=== PATIENT | male | born 1995 | race Caucasian/White ===

== ENCOUNTER 2022-10-11 10:09 | Emergency (ER) | payer OTHER, SELFPAY ==
--- NOTE | ~2022-10-11 | US_ITS ---
EXAMINATION: US SCROTUM, with duplex Doppler vascular flow evaluation. CLINICAL INFORMATION: Pain and swelling. COMPARISON: None TECHNIQUE: A sonogram of the scrotum was performed assessing raymond-scale appearance and color Doppler flow. Spectral Doppler analysis of the arterial and venous flow were performed in the testes bilaterally. FINDINGS: RIGHT: Right testicle measures 5.2 x 2.4 x 3.1 cm, volume 20.3 mL. No focal testicular parenchymal lesions are visualized. Spectral Doppler analysis of the arterial and venous flow is normal in the right testis. Right epididymal head is normal in size. No right hydrocele or varicocele is seen. Right epididymal Doppler flow is normal. LEFT: Left testicle measures 4.4 x 3.0 x 3.9 cm, volume 26.3 mL. No focal testicular parenchymal lesions are visualized. Spectral Doppler analysis of the arterial and venous flow is normal in the left testis. There is a large left epididymal head cyst present without internal vascular flow or soft tissue component measuring 6.2 x 4.0 x 5.3 cm in size. There is a minimal left hydrocele. No varicocele is seen. Left epididymal Doppler flow is normal. US/US scrotum IMPRESSION: Large left epididymal head cyst measuring 6.2 cm in largest dimension. No significant testicular abnormality appreciated. No Doppler flow abnormality is seen.
--- NOTE | ~2022-10-11 | US_ITS ---
EXAMINATION: US SCROTUM, with duplex Doppler vascular flow evaluation. CLINICAL INFORMATION: Pain and swelling. COMPARISON: None TECHNIQUE: A sonogram of the scrotum was performed assessing raymond-scale appearance and color Doppler flow. Spectral Doppler analysis of the arterial and venous flow were performed in the testes bilaterally. FINDINGS: RIGHT: Right testicle measures 5.2 x 2.4 x 3.1 cm, volume 20.3 mL. No focal testicular parenchymal lesions are visualized. Spectral Doppler analysis of the arterial and venous flow is normal in the right testis. Right epididymal head is normal in size. No right hydrocele or varicocele is seen. Right epididymal Doppler flow is normal. LEFT: Left testicle measures 4.4 x 3.0 x 3.9 cm, volume 26.3 mL. No focal testicular parenchymal lesions are visualized. Spectral Doppler analysis of the arterial and venous flow is normal in the left testis. There is a large left epididymal head cyst present without internal vascular flow or soft tissue component measuring 6.2 x 4.0 x 5.3 cm in size. There is a minimal left hydrocele. No varicocele is seen. Left epididymal Doppler flow is normal. US/US scrotum doppler IMPRESSION: Large left epididymal head cyst measuring 6.2 cm in largest dimension. No significant testicular abnormality appreciated. No Doppler flow abnormality is seen.
[2022-10-11 10:14] VITALS: BP 175/95; PULSE 76; RESP 18; TEMP 36.4; O2SAT 98; BMI 22.7
[2022-10-11 10:41] LABS: Appearance Urine Clear; Color Urine Yellow; Glucose Urine UA Negative (Negative); Leukocyte Esterase Urine Negative (Negative); Nitrite Urine Negative (Negative); PH 7.5 (5.0-9.0); Specific Gravity - Urine 1.015 (1.005-1.025); Urine Blood Negative (Negative); Urine Ketones Negative (Negative); Urine Protein Negative (Neg-Trace)
--- NOTE | 2022-10-11 13:02 | ED.MALEGU ---
HPI - Male Genitourinary General Chief complaint: Urogenital-Male Stated complaint: L Testicle Discomfort Time Seen by Provider: 10/11/22 11:18 Source: patient Mode of arrival: ambulatory Limitations: no limitations History of Present Illness HPI Narrative: 27-year-old male with no significant past medical history presenting to the ED with complaints of left testicular discomfort that has worsened over the past 3 days. Reports that he was seen for this testicular pain/ swelling approximately 2 years ago and reports that he was seen by his prior primary care provider was told he had a cyst. He reports he lost his insurance and never followed up after that. Reports that the cyst has grown in the past 2 years and now he is worried. Reports that he seen his new primary care provider over the past few weeks and they told him that they would order an ultrasound although he has not heard back therefore he is concerned and came here for further evaluation treatment. He denies any fevers, abdominal pain, back pain, flank pain, dysuria, hematuria, abnormal discharge or thoughts of STDs or any other symptoms complaints or concerns at this time. MD Complaint: testicle pain and testicle swelling Onset (ago): year(s) (2 has grown in the past few weeks) Duration: constant Location: left testicle Severity: mild Quality: aching Relieving factors: none Exacerbating factors: none Associated symptoms: Reports denies other symptoms Related Data Allergies Allergy/AdvReac Type Severity Reaction Status Date / Time Penicillins Allergy Unknown Verified 10/11/22 10:13 Review of Systems Review of Systems: Constitutional : No Weight loss, No Fever, No Chills, No Night Sweats, No Fatigue, NoMalaise ENT/Mouth: No ear pain, No sore throat, No Difficulty swallowing Cardiovascular : No Chest Pain, No SOB, No Dyspnea on Exertion, No Orthopnea, NoEdema, No Palpitations Respiratory : No Cough, No Sputum, No Wheezing, No Dyspnea Gastrointestinal : No Nausea, No Vomiting, No Diarrhea, + abdominal Pain, No Hematochezia, No Melena Genitourinary : + left testicular pain/swelling, No irregular bleeding, No Dysuria, No Urinary Frequency, No Hematuria,No Urinary Incontinence, No Urgency, No Flank Pain Musculoskeletal : No joint pain, No Myalgias, No Joint Swelling Skin : No Skin Lesions, No rash Neuro : No Weakness, No Numbness, No Paresthesias, No Loss of Consciousness, NoDizziness, No Headache Psych : No Social Issues, Heme/Lymph: No Bruising, No Bleeding,No Lymphadenopathy Endocrine : No Polyuria, No Polydipsia, No Temperature Intolerance PATIENT DENIES ANY THOUGHTS OF STDS Yes all other systems are reviewed and are negative [facility] Past Medical History Attestation statement: The following information was validated with the patient. Source: old records reviewed and nursing notes reviewed Social History Social History Advance Directives: No Advance Directives Information Provided: No Physical Exam Vital Signs: Vital Signs: Last Vital Signs Temp 97.6 F 10/11/22 10:14 Pulse 76 10/11/22 10:14 Resp 18 10/11/22 10:14 BP 175/95 H 10/11/22 10:14 Pulse Ox 98 10/11/22 10:14 O2 Del Method 10/11/22 10:14 BMI result Body Mass Index 22.7 vital signs have been reviewed as normal and appeared to be correct. Blood pressure normal. Heart rate normal. Respiration rate normal. Temperature normal. Oxygen saturation normal. Appearance: Alert. Oriented X3. No acute distress. Head: Normal external exam. Normocephalic. Atraumatic. Eyes: PERRLA. EOMI. Conjunctiva and sclera normal. Eyelids normal. ENT: Pharynx normal. Uvula midline. Moist mucous membranes. Neck: Normal inspection. Neck supple. FROM. No adenopathy. No meningeal signs. CVS: Normal heart rate and rhythm. Heart sound normal. No murmurs noted. Pulses normal throughout. Respiratory: No respiratory distress. Painless inspiration. Breath sounds normal. No wheezes/rales/rhonchi noted. Chest nontender. No accessory muscle usage noted or decreased air movement noted. Abdomen: Soft and nontender. Bowel sounds normal in all 4 quadrants. No distention noted. No organomegaly noted. No visible injury noted. : Chaperoned by RYAN Godoy. Normal external exam. Left testicle enlarged when compared to the right testicle and mildly tender. No additional masses/lumps/ecchymosis/edema/erythema/lacerations/lesions/vesicles/induration noted. No hernia noted. No inguinal lymphadenopathy noted. Normal penis free of discharge. The scrotum is normal. Testicles are both descended bilaterally. No varicocele. No blue dot sign. Back: No CVA tenderness. Full range of motion noted. Skin: Skin warm and dry. Normal skin color. Normal skin turgor. No rashes/lesions/lacerations noted. Extremities: Extremities exhibit normal range of motion. Extremities nontender. Neuro: Oriented X 3. No motor deficit. No sensory deficit. Reflexes normal. Course Course Course Narrative: UA within normal limits no evidence of UTI. Gonorrhea chlamydia pending at this time although patient does not have any abnormal discharge dysuria or thoughts of STDs therefore will not treat. Ultrasound revealed epididymal cysts otherwise no other acute processes. Will DC home with instructions to follow-up with urology and to return if any new or worsening symptoms. Patient understands agrees with this plan. Medical Decision Making Lab Data MDM Lab Attestation statement: I reviewed the patient's lab results. Labs: Lab Results 10/11/22 Range/Units 10:21 Urine Color Yellow Urine Appearance Clear Urine pH 7.5 (5.0-9.0) Ur Specific Harmony 1.015 (1.005-1.025) Urine Protein Negative (Neg-Trace) mg/dL Urine Glucose (UA) Negative (Negative) mg/dL Urine Ketones Negative (Negative) mg/dL Urine Blood Negative (Negative) Urine Nitrite Negative (Negative) Ur Leukocyte Esterase Negative (Negative) Independent Interpretation Interpretation: Ultrasound of testicles FINDINGS: RIGHT: Right testicle measures 5.2 x 2.4 x 3.1 cm, volume 20.3 mL. No focal testicular parenchymal lesions are visualized. Spectral Doppler analysis of the arterial and venous flow is normal in the right testis. Right epididymal head is normal in size. No right hydrocele or varicocele is seen. Right epididymal Doppler flow is normal. LEFT: Left testicle measures 4.4 x 3.0 x 3.9 cm, volume 26.3 mL. No focal testicular parenchymal lesions are visualized. Spectral Doppler analysis of the arterial and venous flow is normal in the left testis. There is a large left epididymal head cyst present without internal vascular flow or soft tissue component measuring 6.2 x 4.0 x 5.3 cm in size. There is a minimal left hydrocele. No varicocele is seen. Left epididymal Doppler flow is normal. US/US scrotum doppler IMPRESSION: Large left epididymal head cyst measuring 6.2 cm in largest dimension. ? No significant testicular abnormality appreciated. ? No Doppler flow abnormality is seen. Discharge Plan Discharge Clinical Impression: Cyst of epididymis Patient Disposition: Home, Self-Care Instructions: Cyst (ED), Scrotal Pain (ED) Referrals: Km Carr III, MD [Physician] - 1 day ( call to make a follow-up appointment) Interventions: ED Discharge Assessment Last Done: 10/11/22 13:08 Discharge Date/Time: 10/11/22 13:11
[2022-10-11 14:00] LABS: CT PCR NOT DETECTED (Not Detect.); NG PCR NOT DETECTED (Not Detect.)
== END 2022-10-11 13:11 | disposition home or self-care (01) ==
PROVIDERS: Emergency Provider Student in an Organized Health Care Education/Training Program
DX: N50.3 Cyst of epididymis (principal); N50.812 Left testicular pain
CPT/HCPCS: 76870; 81003; 87491; 87591; 93975; 99283; 99284

== ENCOUNTER → 2022-11-07 10:51 | Outpatient (BNVA) | payer OTHER, SELFPAY | PROVIDERS: Visit Provider Nurse Practitioner Family | DX: N43.40 Spermatocele of epididymis, unspecified (principal) ==

== ENCOUNTER 2022-11-20 18:33 | Emergency (ER) | payer OTHER, SELFPAY ==
--- NOTE | ~2022-11-20 | CT_ITS ---
EXAMINATION: CT ABDOMEN AND PELVIS WITH CONTRAST CLINICAL INFORMATION: Abdominal pain, nausea/vomiting/diarrhea COMPARISON: None TECHNIQUE: Multidetector volumetric images were obtained from the superior aspect of the liver through the pubic symphysis following administration 85 mL of Omnipaque 350 intravenous contrast. Sagittal and coronal reformatted images were obtained on the technologist's workstation. Oral contrast: No This CT examination was performed using dose optimization techniques as appropriate, variously including the following: *Automated exposure control *Adjustment of mA and/or kV according to patient size (this includes techniques or standardized protocols for targeted exams where dose is matched to indication/reason for exam; i.e. extremities or head) *Use of iterative reconstruction technique DLP: 358 mGy-cm FINDINGS: LUNG BASES: The visualized lung bases are unremarkable. LIVER, GALLBLADDER, AND BILIARY TREE: The liver is normal in size, shape, and attenuation. No focal hepatic lesion or biliary ductal dilatation is present. The gallbladder is unremarkable with no evidence of radiopaque gallstones, gallbladder wall thickening, or obvious pericholecystic inflammatory changes. PANCREAS: Unremarkable. SPLEEN: Borderline enlarged. ADRENAL GLANDS: Unremarkable. KIDNEYS AND URETERS: There are large cystic structures in the left kidney with overlying cortical thinning, suspicious for severe hydronephrosis and dilated calyces. Ureter does not appear dilated, and overall configuration suggests sequelae of chronic UPJ obstruction. No obstructing calculus identified bilaterally. Bilateral nephrograms are symmetric. No right hydronephrosis. BLADDER: Unremarkable. GASTROINTESTINAL TRACT: No evidence of bowel obstruction or significant wall thickening. The appendix is unremarkable. No free fluid or free air is seen. ABDOMINAL WALL: No significant hernia is appreciated. LYMPH NODES: Normal. VASCULAR: Unremarkable. PELVIC VISCERA: Unremarkable. OSSEOUS STRUCTURES: Unremarkable. CT/CT abdomen pelvis w IV con IMPRESSION: 1. No acute bowel abnormality. 2. Large cystic structures in the left kidney with overlying cortical thinning, suspicious for sequelae of chronic UPJ obstruction. No obstructing calculus identified. 3. Borderline enlarged spleen.
[2022-11-20 18:54] VITALS: BP 134/75; PULSE 90; RESP 20; TEMP 37.2; O2SAT 96; BMI 22.5
--- NOTE | 2022-11-20 18:54 | ED.URI ---
HPI - URI/Sore Throat General Chief Complaint: Nausea/Vomiting/Diarrhea Stated Complaint: Fatigue, vomiting, diarrhea Time Seen by Provider: 11/21/22 00:02 Related Data Previous Rx's Medication Instructions Recorded ibuprofen 400 mg tablet 400 mg PO Q6H PRN pain #20 tabs 11/21/22 ondansetron 4 mg disintegrating 4 mg PO TID PRN nausea and 11/21/22 tablet vomiting 5 days #10 tabs Allergies Allergy/AdvReac Type Severity Reaction Status Date / Time Penicillins Allergy Unknown Verified 11/07/22 20:04 [facility] Past Medical History Medical History Elevated blood-pressure reading, without diagnosis of hypertension Hx of migraines Hyperopia of left eye Myopia, right eye Unspecified asthma, uncomplicated Surgical History History of hernia repair Social History Social History Advance Directives: No Advance Directives Information Provided: No Physical Exam Vital Signs: Vital Signs: Last Vital Signs Temp 98.8 F 11/21/22 02:00 Pulse 76 11/21/22 02:00 Resp 15 11/21/22 02:00 BP 131/84 11/21/22 02:00 Pulse Ox 98 11/21/22 02:00 O2 Del Method 11/21/22 02:00 BMI result Body Mass Index 22.5 Course Course Course Narrative: This is a rapid medical exam. Deferred additional HPI, ROS, PE to primary provider. 27 yo male healthy here with vomiting/diarrhea since waking with no abdominal pain. Unable to maintain PO. Feels dizzy/weak when he walks around. Will obtain labs, testing for flu/covid/rsv and SL zofran. VSS Medications Administered Discontinued Medications Generic Name Dose Route Start Last Admin Trade Name Freq PRN Reason Stop Dose Admin Hydromorphone HCl 0.5 mg 11/21/22 00:06 11/21/22 01:05 Hydromorphone Hcl 0.5 Mg/0.5 Ml Syringe IVPUSH 11/21/22 00:07 0.5 mg ONCE ONE Administration Protocol Sodium Chloride 1,000 mls @ 999 mls/hr 11/21/22 00:15 11/21/22 02:45 Ns IV 11/21/22 01:15 Infused .Q1H1M DONNA Infusion Sodium Chloride 1,000 mls @ 999 mls/hr 11/21/22 00:15 11/21/22 02:45 Ns IV 11/21/22 01:15 Infused .Q1H1M DONNA Infusion Iohexol 85 ml 11/21/22 01:36 11/21/22 01:36 Iohexol 350 Mg/Ml 100 Ml Infus..Btl IV 11/21/22 01:37 85 ml ONCE ONE Administration Ondansetron HCl 4 mg 11/20/22 18:55 11/20/22 18:58 Ondansetron Odt 4 Mg Tab.Rapdis TRANSLINGU 11/20/22 18:56 4 mg ONCE ONE Administration Ondansetron HCl 4 mg 11/21/22 00:06 11/21/22 01:05 Ondansetron Hcl 4 Mg/2 Ml Vial IVPUSH 11/21/22 00:07 4 mg ONCE ONE Administration Medical Decision Making Lab Data 11/20/22 19:54 11/20/22 19:54 Labs: Lab Results 11/20/22 11/20/22 11/20/22 Range/Units 19:51 19:54 19:54 WBC 12.6 H (4.8-10.8) X10*3/uL RBC 5.12 (4.60-5.80) X10*6/uL Hgb 15.7 (14.0-18.0) g/dl Hct 45.4 (42.0-52.0) % MCV 88.7 (80.0-98.0) fL MCH 30.7 (27.0-33.0) pg MCHC 34.6 (31.0-36.0) g/dl RDW 11.4 (11.0-16.0) % Plt Count 202 (160-400) X10*3/uL MPV 10.7 (9.4-12.4) fL Immature Gran % (Auto) 0.3 (0.0-0.4) % Neut % (Auto) 88.1 H (45-73) % Lymph % (Auto) 5.2 L (20-40) % Lewis % (Auto) 5.5 (2-11) % Eos % (Auto) 0.7 (0-4) % Baso % (Auto) 0.2 (0-2) % Lymph # (Auto) 0.7 L (1.2-4.9) X10*3/uL Lewis # (Auto) 0.7 (0.1-1.2) X10*3/uL Eos # (Auto) 0.1 (0.0-0.4) X10*3/uL Baso # (Auto) 0.0 (0.0-0.2) X10*3/uL Abs Immat Gran (auto) 0.04 H (0.00-0.03) X10*3/uL Absolute Neuts (auto) 11.1 H (2.0-8.3) x10*3/uL Absolute Nucleated RBC 0.000 (0.0-0.012) X10*3/uL Nucleated RBC % (auto) 0.0 (0.0-0.2) /100WBC Sodium 141 (135-145) mmol/L Potassium 4.0 (3.3-5.1) mmol/L Chloride 106 (96-108) mmol/L Carbon Dioxide 24 (22-29) mmol/L Anion Gap 15 (12-20) BUN 19 H (9-16) mg/dL Creatinine 0.91 (0.5-1.4) mg/dL Estim Creat Clear Calc 112.6 Estimated GFR > 60 Random Glucose 93 (60-115) mg/dL Calcium 9.3 (8.4-10.2) mg/dL Total Bilirubin 1.3 H (0.0-1.0) mg/dL Direct Bilirubin 0.4 (0.0-0.5) mg/dL AST 19 (5-37) U/L ALT 26 (0-40) U/L Alkaline Phosphatase 47 (39-117) U/L Total Protein 7.0 (6.5-8.0) g/dL Albumin 4.3 (3.5-5.0) g/dL Lipase 12 (8-78) U/L Influenza Type A (PCR) NEGATIVE (Negative) Influenza Type B (PCR) NEGATIVE (Negative) RSV RNA Qual (PCR) NEGATIVE (Negative) SARS-CoV-2 RNA (RT-PCR) NEGATIVE (Negative) Discharge Plan Discharge Clinical Impression: Gastroenteritis Patient Disposition: Home, Self-Care Instructions: Gastroenteritis (ED) Additional Instructions: a large cystic lesion was noted in your kidney. A copy of the CT scan report was given to you. This is most likely secondary to a chronic kidney stone. Please follow-up with Urology. A telephone number was given to you. Prescriptions: New ibuprofen 400 mg tablet 400 mg PO Q6H PRN (Reason: pain) Qty: 20 0RF ondansetron 4 mg tablet,disintegrating 4 mg PO TID PRN (Reason: nausea and vomiting) 5 Days Qty: 10 0RF Referrals: Ye Chaudhari MD [Physician] - ( A copy of the CT scan report was given to you. Please take it and follow-up with Dr. Chaudhari) Physician,Nonstaff [Primary Care Provider] - Stand Alone Forms: Work/School Release Interventions: ED Discharge Assessment Last Done: 11/21/22 02:46 Discharge Date/Time: 11/21/22 02:46
[2022-11-20] MEDS: Ondansetron ODT 4 MG TAB.RAPDIS TRANSLINGU (18:58)
[2022-11-20 20:00] LABS: Basophils Percent Auto 0.2 % (0-2); Eosinophils Absolute Auto 0.1 X10*3/uL (0.0-0.4); Eosinophils Percent Auto 0.7 % (0-4); Hematocrit 45.4 % (42.0-52.0); Hemoglobin 15.7 g/dl (14.0-18.0); Imm Gran Abs Auto 0.04 X10*3/uL (0.00-0.03); Imm Gran Pct Auto 0.3 % (0.0-0.4); Lymphocytes Absolute Auto 0.7 X10*3/uL (1.2-4.9); Lymphocytes Percent Auto 5.2 % (20-40); MANUAL DIFF FLAG NO; Mean Corpuscular HGB Conc 34.6 g/dl (31.0-36.0); Mean Corpuscular Hemoglobin 30.7 pg (27.0-33.0); Mean Corpuscular Volume 88.7 fL (80.0-98.0); Mean Platelet Volume 10.7 fL (9.4-12.4); Monocytes Absolute Auto 0.7 X10*3/uL (0.1-1.2); Monocytes Percent Auto 5.5 % (2-11); Neutrophils Absolute Auto 11.1 x10*3/uL (2.0-8.3); Neutrophils Percent Auto 88.1 % (45-73); Platelet Count 202 X10*3/uL (160-400); Red Blood Count 5.12 X10*6/uL (4.60-5.80); Red Cell Distribution Width 11.4 % (11.0-16.0); White Blood Count 12.6 X10*3/uL (4.8-10.8)
[2022-11-20 20:14] LABS: Anion Gap 15 (12-20); Blood Urea Nitrogen 19 mg/dL (9-16); Calcium 9.3 mg/dL (8.4-10.2); Carbon Dioxide 24 mmol/L (22-29); Chloride 106 mmol/L (96-108); Creatinine Clr Calc Pharmacy 112.6; Estimated Glomerular Filt Rate > 60; Glucose Random 93 mg/dL (60-115); Sodium 141 mmol/L (135-145)
[2022-11-20 20:37] LABS: Influenza A PCR NEGATIVE (Negative); Influenza B PCR NEGATIVE (Negative); Resp Syncy Virus RNA Qual PCR NEGATIVE (Negative); SARS COV2 PCR INHOUSE NEGATIVE (Negative)
[2022-11-21] VITALS: BP 139/88; PULSE 83; RESP 14; TEMP 37.4; O2SAT 97
--- NOTE | 2022-11-21 00:07 | ED.NAVMDI ---
HPI - Nausea/Vomiting/Diarrhea General Chief complaint: Nausea/Vomiting/Diarrhea Stated complaint: Fatigue, vomiting, diarrhea Time Seen by Provider: 11/21/22 00:02 History of Present Illness HPI Narrative: patient is a 27-year-old male presents today with having nausea vomiting diarrhea abdominal cramping. No travel history no recent antibiotics. No coughing no congestion or upper respiratory symptoms. Patient is from home. Positive cramping in the abdomen mostly in the epigastric area. MD elicited complaint: nausea, vomiting and diarrhea Related Data Previous Rx's Medication Instructions Recorded ibuprofen 400 mg tablet 400 mg PO Q6H PRN pain #20 tabs 11/21/22 ondansetron 4 mg disintegrating 4 mg PO TID PRN nausea and 11/21/22 tablet vomiting 5 days #10 tabs Allergies Allergy/AdvReac Type Severity Reaction Status Date / Time Penicillins Allergy Unknown Verified 11/07/22 20:04 Review of Systems Review of Systems: Positive nausea vomiting diarrhea. Vomiting mostly food. Diarrhea is brown in color. Yes all other systems are reviewed and are negative PMFSH Past Medical History Attestation statement: The following information was validated with the patient. Medical History Elevated blood-pressure reading, without diagnosis of hypertension Hx of migraines Hyperopia of left eye Myopia, right eye Unspecified asthma, uncomplicated Surgical History History of hernia repair Social History Social History Advance Directives: No Advance Directives Information Provided: No Physical Exam Vital Signs: Vital Signs: Last Vital Signs Temp 99.3 F 11/21/22 00:00 Pulse 83 11/21/22 00:00 Resp 14 11/21/22 00:00 BP 139/88 11/21/22 00:00 Pulse Ox 97 11/21/22 00:00 O2 Del Method 11/21/22 00:00 BMI result Body Mass Index 22.5 Appearance: Alert. Oriented X3. No acute distress. Eyes: Pupils equal, round and reactive to light. ENT: Pharynx normal. Neck: Normal inspection. Neck supple. No lymph nodes noted. No crepitus CVS: Normal heart rate and rhythm. Pulses normal. Normal S1 and S2 Respiratory: No respiratory distress. Breath sounds normal. No Wheezing. No rales Abdomen: Soft and nontender. No rigidity. No distention. good BS x4 Skin: Skin warm and dry. Normal skin color. Normal skin turgor. Extremities: No lower extremity edema. Neurovascular intact to all extremities. No Lacerations. No Rash Neuro: Oriented X 3. No motor deficit. No sensory deficit. Moving all extermities. No slurred speech Medications Administered Discontinued Medications Generic Name Dose Route Start Last Admin Trade Name Freq PRN Reason Stop Dose Admin Hydromorphone HCl 0.5 mg 11/21/22 00:06 11/21/22 01:05 Hydromorphone Hcl 0.5 Mg/0.5 Ml Syringe IVPUSH 11/21/22 00:07 0.5 mg ONCE ONE Administration Protocol Sodium Chloride 1,000 mls @ 999 mls/hr 11/21/22 00:15 11/21/22 01:06 Ns IV 11/21/22 01:15 999 mls/hr .Q1H1M DONNA Administration Sodium Chloride 1,000 mls @ 999 mls/hr 11/21/22 00:15 11/21/22 01:06 Ns IV 11/21/22 01:15 999 mls/hr .Q1H1M DONNA Administration Iohexol 85 ml 11/21/22 01:36 11/21/22 01:36 Iohexol 350 Mg/Ml 100 Ml Infus..Btl IV 11/21/22 01:37 85 ml ONCE ONE Administration Ondansetron HCl 4 mg 11/20/22 18:55 11/20/22 18:58 Ondansetron Odt 4 Mg Tab.Rapdis TRANSLINGU 11/20/22 18:56 4 mg ONCE ONE Administration Ondansetron HCl 4 mg 11/21/22 00:06 11/21/22 01:05 Ondansetron Hcl 4 Mg/2 Ml Vial IVPUSH 11/21/22 00:07 4 mg ONCE ONE Administration Medical Decision Making Medical Decision Making [facility] Narrative: Patient complaining abdominal pain nausea vomiting diarrhea. Differential includes viral gastroenteritis, appendicitis. Patient's white count is 13. CT scan of the abdomen was negative for any acute evidence of abscess perforation appendicitis. 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 Will have patient follow-up with Urology on an outpatient basis. Zofran for nausea. In stable condition. Hydrated in the emergency department. Differential Diagnosis Differential Diagnoses: The differential diagnosis associated with the presentation includes Obstruction, gastroenteritis, appendicitis Admission/Observation no need for admission as patient's symptoms improved Lab Data MDM Lab Attestation statement: I reviewed the patient's lab results. 11/20/22 19:54 11/20/22 19:54 Labs: Lab Results 11/20/22 11/20/22 11/20/22 Range/Units 19:51 19:54 19:54 WBC 12.6 H (4.8-10.8) X10*3/uL RBC 5.12 (4.60-5.80) X10*6/uL Hgb 15.7 (14.0-18.0) g/dl Hct 45.4 (42.0-52.0) % MCV 88.7 (80.0-98.0) fL MCH 30.7 (27.0-33.0) pg MCHC 34.6 (31.0-36.0) g/dl RDW 11.4 (11.0-16.0) % Plt Count 202 (160-400) X10*3/uL MPV 10.7 (9.4-12.4) fL Immature Gran % (Auto) 0.3 (0.0-0.4) % Neut % (Auto) 88.1 H (45-73) % Lymph % (Auto) 5.2 L (20-40) % Grimes % (Auto) 5.5 (2-11) % Eos % (Auto) 0.7 (0-4) % Baso % (Auto) 0.2 (0-2) % Lymph # (Auto) 0.7 L (1.2-4.9) X10*3/uL Grimes # (Auto) 0.7 (0.1-1.2) X10*3/uL Eos # (Auto) 0.1 (0.0-0.4) X10*3/uL Baso # (Auto) 0.0 (0.0-0.2) X10*3/uL Abs Immat Gran (auto) 0.04 H (0.00-0.03) X10*3/uL Absolute Neuts (auto) 11.1 H (2.0-8.3) x10*3/uL Absolute Nucleated RBC 0.000 (0.0-0.012) X10*3/uL Nucleated RBC % (auto) 0.0 (0.0-0.2) /100WBC Sodium 141 (135-145) mmol/L Potassium 4.0 (3.3-5.1) mmol/L Chloride 106 (96-108) mmol/L Carbon Dioxide 24 (22-29) mmol/L Anion Gap 15 (12-20) BUN 19 H (9-16) mg/dL Creatinine 0.91 (0.5-1.4) mg/dL Estim Creat Clear Calc 112.6 Estimated GFR > 60 Random Glucose 93 (60-115) mg/dL Calcium 9.3 (8.4-10.2) mg/dL Total Bilirubin 1.3 H (0.0-1.0) mg/dL Direct Bilirubin 0.4 (0.0-0.5) mg/dL AST 19 (5-37) U/L ALT 26 (0-40) U/L Alkaline Phosphatase 47 (39-117) U/L Total Protein 7.0 (6.5-8.0) g/dL Albumin 4.3 (3.5-5.0) g/dL Lipase 12 (8-78) U/L Influenza Type A (PCR) NEGATIVE (Negative) Influenza Type B (PCR) NEGATIVE (Negative) RSV RNA Qual (PCR) NEGATIVE (Negative) SARS-CoV-2 RNA (RT-PCR) NEGATIVE (Negative) Radiology Impression Discussion of test interpretation with radiology: I have reviewed the radiologist's reading. Independent Historian Clinical information obtained from an independent historian. History obtained from or confirmed by: Other Discharge Plan Discharge Clinical Impression: Gastroenteritis Patient Disposition: Home, Self-Care Instructions: Gastroenteritis (ED) Additional Instructions: a large cystic lesion was noted in your kidney. A copy of the CT scan report was given to you. This is most likely secondary to a chronic kidney stone. Please follow-up with Urology. A telephone number was given to you. Prescriptions: New ibuprofen 400 mg tablet 400 mg PO Q6H PRN (Reason: pain) Qty: 20 0RF ondansetron 4 mg tablet,disintegrating 4 mg PO TID PRN (Reason: nausea and vomiting) 5 Days Qty: 10 0RF Referrals: Physician,Nonstaff [Primary Care Provider] - Ye Chaudhari MD [Physician] - ( A copy of the CT scan report was given to you. Please take it and follow-up with Dr. Chaudhari)
[2022-11-21 00:47] LABS: Alanine Aminotransferase 26 U/L (0-40); Albumin Level 4.3 g/dL (3.5-5.0); Alkaline Phosphatase 47 U/L (39-117); Aspartate Amino Transferase 19 U/L (5-37); Bilirubin Direct 0.4 mg/dL (0.0-0.5); Bilirubin Total 1.3 mg/dL (0.0-1.0); Lipase 12 U/L (8-78)
[2022-11-21] MEDS: HYDROmorphone HCl 0.5 MG/0.5 ML SYRINGE IVPUSH (01:05)
[2022-11-21] MEDS: ondansetron HCL 4 MG/2 ML VIAL IVPUSH (01:05)
[2022-11-21] MEDS: 0.9 % Sodium Chloride 1,000 ML 999 ML IV ×2 (01:06)
[2022-11-21] MEDS: iohexoL 350 MG/ML 100 ML INFUS..BTL 85 ML IV (01:36)
[2022-11-21 02:00] VITALS: BP 131/84; PULSE 76; RESP 15; TEMP 37.1; O2SAT 98
--- NOTE | 2022-11-21 02:44 | PC.NURSE ---
IV line removed. Pt tolerated well. Discharge instructions reviewed with pt. Pt verbalizes understanding. Able to tolerate PO liquids and solids.
== END 2022-11-21 02:46 | disposition home or self-care (01) ==
PROVIDERS: Nurse Practitioner Family; Emergency Provider Emergency Medicine Emergency Medical Services
DX: K52.9 Noninfective gastroenteritis and colitis, unspecified (principal); R11.2 Nausea with vomiting, unspecified; Z20.822 Contact with and (suspected) exposure to COVID-19; Z20.828 Contact with and (suspected) exposure to other viral communicable diseases; Z79.899 Other long term (current) drug therapy
CPT/HCPCS: 0241U; 74177; 80048; 80076; 83690; 85025; 96361; 96374; 96375; 99284; J1170; J2405; Q9967

== ENCOUNTER 2022-12-04 12:04 | Day surgery (SDC) | payer OTHER, SELFPAY ==
[2022-12-04] VITALS (9 sets, daily range): BP systolic 154–166; BP diastolic 90–109; PULSE 72–92; RESP 12–19; TEMP 36.3–37.3; O2SAT 97–100; BMI 21.2
[2022-12-04] MEDS: Acetaminophen 325 MG TABLET 650 MG PO (12:54)
--- NOTE | 2022-12-04 15:20 | MHC.SHP ---
Pre-Procedural Eval Section A Date of Service: 12/04/22 The patient is an INPATIENT: No Changes since office visit: No Cold of Flu in the past 2 weeks, No New Medical Problems, No Changes in Medication and No Patient answered all questions The History & Physical has been completed within 30 days and I have reviewed it.: Yes Section B Chief Complaint: Spermatocele of epididymis, unspecified Allergies: Allergies Allergy/AdvReac Type Severity Reaction Status Date / Time Penicillins Allergy Unknown Verified 11/29/22 12:43 Review of Systems Sugical H&P ROS: Negative: Constitution, Cardiovascular, Respiratory, Neurological, Psychiatric, Hem-Onc, Allergic/Immunologic, Gastrointestinal, Genitourinary, Musculoskeletal, Integumentary, Endocrine and Eyes/Ears/Nose/Throat Exam Surgical H&P Exam: Normal: HEENT, Normal: Heart, Normal: Lungs, Normal: Extremities, Normal: Abdomen, Normal: Skin and Normal: Neurological Plan Diagnosis/Plan: Unchanged ( left spermatocelectomy) I have reviewed the history and physical and performed a pertinent physical examination on my patient. No changes have occurred unless specified. Time Spent With Patient Time: Total time managing care of this patient today ____ minutes.
--- NOTE | 2022-12-04 15:41 | HO.ANESPROP2 ---
HPI - Anesthesia Eval Consult details Narrative: spermatocele rep PMFSH Active Problems Active Problems: All Active Problems (Updated 11/22/22 @ 00:00 by Markel Arevalo) Epididymal cyst (Acute) Spermatocele of epididymis (Acute) Past Medical History Medical History Elevated blood-pressure reading, without diagnosis of hypertension Hx of migraines Hyperopia of left eye Myopia, right eye Unspecified asthma, uncomplicated Family History Family history of problems with anesthesia: No Surgical History Surgical History History of hernia repair History of Problems with Anesthesia: No Social History Social History Patient Tobacco Use Status: Never used Tobacco Use of substances other than those prescribed or required for medical reasons: Yes Substance Use Type Other:: smoked Are you DNR?: No Advance Directives: No Advance Directives Information Provided: Yes Meds Allergies Allergy/AdvReac Type Severity Reaction Status Date / Time Penicillins Allergy Unknown Verified 11/29/22 12:43 Exam Exam Date and Time: December 04, 2022 1541 Height,Weight and Vital Signs: Height 5 ft 8 in Weight 63.503 kg Last Vital Signs Temp 99.2 F 12/04/22 12:42 Pulse 92 12/04/22 12:42 Resp 14 12/04/22 12:42 BP 154/109 H 12/04/22 12:42 Pulse Ox 97 12/04/22 12:42 O2 Del Method 12/04/22 12:42 Airway Mallampati Class: I TM Dist: >3cm Neck ROM: Full Loose/Missing/Broken Teeth: No Heart: ok Lungs: ok Assessment and Plan Assessment Anesthesia Assessment: Anesthesia Plan Discussed and Chart Reviewed Final Anesthetic Review Family History of Problems with Anesthesia: No History of Problems with Anesthesia: No NPO: Yes ASA Class: II Final Preanesthetic Review: No Changes in Pt Med Stat, Meds/Allgs Chart Reviewed, Consent Obtained/Reviewed and Anes Risks/Benef Reviewed Patient Risk: Low Procedure Risk: Low Anesthetic Plan Anesthetic Plan: GA and Agree w/ Assess. and Plan Disposition: Standard PACU
[2022-12-04] MEDS: fentaNYL citrate/PF 100 MCG/2 ML VIAL 50 MCG IVPUSH (17:00)
--- NOTE | 2023-02-28 13:58 | W.PM.OPN ---
Operative Note Operative Note Date of Service: 12/04/22 Narrative: PreOperative Diagnosis: Right Spermatocele Post Operative Diagnosis: Right Spermatocele Procedure: Spermatocelectomy Surgeon: Dr Ye Chaudhari Anesthesia: General Indications for procedure: Right Spermatocele with persistent discomfort Procedure: After informed consent was verified the patient was brought to the operating room and placed in a supine position. Anesthesia was administered per protocol. Patient was appropriately shaved and genitals were prepped and draped in sterile fashion. Safety pause time-out was performed. Antibiotics being given. Local anesthetic was infiltrated under the skin in a horizontal fashion on the scrotum. Skin incision was made using a blade through the subdermal layer. The tunica around the testicle was elevated and dissected free from surrounding tissue. A small incision was made through the tunic. Edges were held using Allis clamps. Fluid was removed. The testicle was delivered from the tunic. The spermatocele was seen within the epididymis of the testicle. Using Bovie cautery spermatocele was carefully dissected free from attachments to the upper pole of the testicle and the epididymis. Once free the stalk of the spermatocele was identified and cauterized. Fluid was removed from the spermatocele and the empty spermatocele sac was removed. Small accessory appendices were removed from the head of epididymis. The testicle was placed back within tunica inside the scrotum. The tunica was closed using a running 3-0 Vicryl suture. Overlying tissue was reapproximated using a running 3-0 Vicryl suture. Skin was closed with interrupted 4-0 chromic sutures. Soft fluff sponges were placed with mesh pants as dressing. Local anesthetic was placed in inguinal cord for post procedure pain relief. Patient tolerated procedure well was extubated in operating room transferred in stable condition to the recovery area Pathology: Spermatocele sac Drains: None
== END 2022-12-04 17:45 | disposition home or self-care (01) ==
PROVIDERS: Visit Provider Urology
PROC: (CPT 54840; principal; 2022-12-04 13:50)
DX: N43.40 Spermatocele of epididymis, unspecified (principal); N50.3 Cyst of epididymis; R03.0 Elevated blood-pressure reading, without diagnosis of hypertension; J45.909 Unspecified asthma, uncomplicated; Z88.0 Allergy status to penicillin
CPT/HCPCS: 54840; 88304; J0690; J1170; J2250; J2405; J2795; J3010

== ENCOUNTER → 2023-01-09 13:44 | Outpatient (BNVA) | payer OTHER, SELFPAY | PROVIDERS: PCP Internal Medicine; Visit Provider Urology | DX: Z13.89 Encounter for screening for other disorder (principal) ==